=== PATIENT | female | born 1995 | race American Indian/Alaskan Native ===

== ENCOUNTER 2018-12-13 15:35 | Outpatient (CLI) | payer MEDICAID ==
[2018-12-13 16:05] VITALS: BP 111/75
[2018-12-13] MEDS ORDERED: LACTATED RINGERS 1,000 ML ONE (17:03)
[2018-12-13] MEDS ORDERED: VISTARIL PO ONE (17:20)
== END 2018-12-13 18:15 | disposition home or self-care (01) ==
LOC: TRG 15:35
PROVIDERS: ATTEND Obstetrics & Gynecology
DX: O47.1 False labor at or after 37 completed weeks of gestation (principal); Z3A.38 38 weeks gestation of pregnancy
CPT/HCPCS: 59025; 96360; J7120; Q0177

== ENCOUNTER 2018-12-14 06:06 | Inpatient (IN) | payer MEDICAID ==
[2018-12-14] MEDS ORDERED: BRETHINE SUB-Q PRN (06:43)
[2018-12-14] MEDS ORDERED: BRETHINE IVP PRN (06:43)
[2018-12-14] MEDS ORDERED: SUBLIMAZE IV PRN (06:43)
[2018-12-14] MEDS ORDERED: MINERAL OIL PO PRN (06:43)
[2018-12-14] MEDS ORDERED: XYLOCAINE 2% INFILTRATI ONE (06:43)
[2018-12-14] MEDS ORDERED: AMPICILLIN/NS 2 GM/100 ML 2 GM/100 ML BAG IV ONE (06:43)
[2018-12-14] MEDS ORDERED: PITOCin/NS 20 UNIT/1000ML DRIP 20 UNITS/1,000 ML BAG IV SCH (07:00)
[2018-12-14 07:28] LABS: Hematocrit 29.9 % (30.3-42.9); Hemoglobin 9.3 gm/dl (10.1-14.3); Mean Corpuscular HGB Conc 31 % (30-34); Mean Corpuscular Volume 76 fl (79-97); Platelet Count 291 K/mm3 (140-440); Red Blood Count 3.95 M/mm3 (3.65-5.03); Red Cell Distribution Width 18.1 % (13.2-15.2)
[2018-12-14] MEDS: LACTATED RINGERS 1,000 ML IV SCH ×3 (07:54→15:19)
[2018-12-14] MEDS: STADOL IV PRN ×4 (08:01→14:56)
--- NOTE | 2018-12-14 11:51 | History and Physical Report ---
History of Present Illness Date of examination: 12/14/18 (10:40) Date of admission: 12/14/18 07:15 Chief complaint: Intense labor pains History of present illness: 23 yo AA Fe DAE 12/22/2018 ([facility]), 38weeks 6 days, presents in Spontaneous labor.O positive, Rubella Immune, GBS positive. Pt initiated early care with [facility] at 8 weeks. complicated by UTI (GBS; NICA Negative) and several episodes of BV. 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 denies: abnormal PAP smear, gonorrhea, hepatitis B, hepatitis C, herpes, HIV, syphilis, trichomonas Family/Genetic History: diabetes (was given with), heart disease Social history: single, lives with family, full code. denies: smoking, alcohol abuse, prescription drug abuse, IV drug use - Obstetrical History Expected Date of Delivery: 12/22/18 Actual Gestation: 38 Week(s) 6 Day(s) : 1 Para: 0 Hx # Term Pregnancies: 0 Number of Pregnancies: 0 Spontaneous Abortions: 0 Induced : 0 Number of Living Children: 0 Medications and Allergies Allergies Allergy/AdvReac Type Severity Reaction Status Date / Time No Known Allergies Allergy Verified 09/01/15 00:21 Home Medications Medication Instructions Recorded Confirmed Last Taken Type Acetaminophen/Codeine [Tylenol #3] 1 tab PO Q6H PRN #20 tab 09/01/15 12/14/18 Unknown Rx Cyclobenzaprine [Flexeril 10 MG 10 mg PO TID PRN #30 tablet 09/01/15 12/14/18 Unknown Rx TAB] Ibuprofen [Motrin] 600 mg PO Q8H PRN #40 tablet 09/01/15 12/14/18 Unknown Rx Active Meds: Active Medications Butorphanol Tartrate (Stadol) 2 mg IV Q2H PRN PRN Reason: Pain , Severe (7-10) Last Admin: 12/14/18 09:54 Dose: 2 mg Documented by: Ephedrine Sulfate (Ephedrine Sulfate) 10 mg IV Q2M PRN PRN Reason: Hypotension Fentanyl (Sublimaze) 100 mcg IV Q2H PRN PRN Reason: Labor Pain Lactated Ringer's (Lactated Ringers) 1,000 mls @ 125 mls/hr IV DIRECT ANNIE Last Admin: 12/14/18 09:45 Dose: 125 mls/hr Documented by: Oxytocin/Sodium Chloride (Pitocin/Ns 20 Unit/1000ml Drip) 20 units in 1,000 mls @ 125 mls/hr IV DIRECT ANNIE Ampicillin Sodium (Ampicillin/Ns 1 Gm/50 Ml) 1 gm in 50 mls @ 100 mls/hr IV Q4HR ANNIE; Protocol Mineral Oil (Mineral Oil) 30 ml PO QHS PRN PRN Reason: Constipation Terbutaline Sulfate (Brethine) 0.25 mg SUB-Q ONCE PRN PRN Reason: Hyperstimulation/Hypertonicity Terbutaline Sulfate (Brethine) 0.25 mg IVP ONCE PRN PRN Reason: Hyperstimulation/Hypertonicity Review of Systems Cardiovascular: no chest pain, no shortness of breath Respiratory: no shortness of breath Breasts: normal Gastrointestinal: no nausea, no vomiting, no diarrhea, no constipation Genitourinary: normal appearance, contractions, no vaginal bleeding, no leakage of fluid, no dysuria, no pelvic pain, no genital sores Integumentary: no rash, no sores, no lesions - Vital Signs Vital signs: Vital Signs Pulse BP 98 H 109/66 12/14/18 06:16 12/14/18 06:16 Temp Pulse Resp BP Pulse Ox 98.6 F 69 20 132/72 12/14/18 10:35 12/14/18 09:57 12/14/18 10:35 12/14/18 09:57 - Physical Exam Breasts: Positive: normal Cardiovascular: Regular rate, Normal S1, Normal S2, No murmurs Lungs: Positive: Clear to auscultation, Normal air movement Abdomen: Positive: normal appearance, soft, normal bowel sounds. Negative: distention Vulva: both: normal Vagina: Positive: normal moisture Uterus: Positive: enlarged (Gravid) Anus/Rectum: Positive: normal perianal skin Extremities: Positive: normal Deep Tendon Reflex Grade: Normal +2 - Obstetrical FHR: auscultation normal, category 1 Uterine Contraction Monitor Mode: External Cervical Dilatation: 4 (AROM 12/14 @ 10:40, Clear fluid) Cervical Effacement Percentage: 90 station: -2 Uterine Contraction Frequency (min): 2-6min Uterine Contraction Pattern: Regular Uterine Tone Measurement Phase: Resting Uterine Contraction Intensity: Moderate Results Result Diagrams: 12/14/18 07:12 Abnormal lab results 12/14/18 Range/Units 07:12 WBC 11.6 H (4.5-11.0) K/mm3 Hgb 9.3 L (10.1-14.3) gm/dl Hct 29.9 L (30.3-42.9) % MCV 76 L (79-97) fl MCH 24 L (28-32) pg RDW 18.1 H (13.2-15.2) % All other labs normal. Assessment and Plan A: Term IUP at 39w6d Spontaneous labor Category 1 tracing GBS Positive AROM, 12/14@ 10:40, moderate, clear fluid P: Admit to L&D; Routine labor orders GBS prophylaxis May have IV pain med/epidural PRN Anticipate
[2018-12-14] MEDS: AMPICILLIN/NS 1 GM/50 ML 1 GM/50 ML BAG IV SCH ×3 (12:42→20:30)
[2018-12-14] MEDS ORDERED: LACTATED RINGERS 1,000 ML IV SCH (13:00)
[2018-12-14] MEDS ORDERED: NARCAN 2 MG/2 ML IV PRN (15:48)
--- NOTE | 2018-12-14 15:49 | Anesthesia Day of Surgery ---
Anesthesia Day of Surgery - Day of Surgery Patient Examined: Yes Patient H&P Reviewed: Yes Patient is NPO: Yes Beta Blockers: No Cardiac Clearance: No Pulmonary Clearance: No Dustin's Test: N/A
--- NOTE | 2018-12-14 15:50 | Anesthesia Consultation ---
Anesthesia Consult and Med Hx - Airway Anesthetic Teeth Evaluation: Good ROM Head & Neck: Adequate Mental/Hyoid Distance: Adequate Mallampati Class: Class I Intubation Access Assessment: Good - Pulmonary Exam CTA: Yes - Cardiac Exam Cardiac Exam: RRR - Pre-Operative Health Status ASA Pre-Surgery Classification: ASA2 Proposed Anesthetic Plan: Epidural - Pulmonary Hx Asthma: No - Cardiovascular System Hx Hypertension: No - Central Nervous System Hx Seizures: No Hx Psychiatric Problems: No - Endocrine Hx Renal Disease: No Hx Hypothyroidism: No Hx Hyperthyroidism: No - Hematic Hx Anemia: Yes Hx Sickle Cell Disease: No - Other Systems Hx Alcohol Use: No
[2018-12-14] MEDS ORDERED: fentaNYL-BUPIV 2 MCG/ML-0.125% 200 MCG/100 ML BAG EPIDURAL SCH (16:00)
[2018-12-14] MEDS ORDERED: XYLOCAINE 2%/ EPI 1:200,000 INFILTRATI ONE (16:03)
[2018-12-14] MEDS ORDERED: PITOCin/NS 30 UNIT/500ML 30 UNITS/500 ML BAG IV SCH (18:00)
--- NOTE | 2018-12-14 18:02 | Progress Note ---
Assessment and Plan A: Term IUP at 39w6d Active labor Category 1 tracing GBS Positive Comfortable with epidural P: Continue Routine labor orders Continue GBS prophylaxis Anticipate Subjective - Subjective Date of service: 12/14/18 Principal diagnosis: Term IUP, active labor Interval history: 23 yo AA Fe DAE 12/22/2018 ([facility]), 38weeks 6 days, presents in Spontaneous labor.O positive, Rubella Immune, GBS positive. Pt initiated early care with [facility] at 8 weeks. complicated by UTI (GBS; NICA Negative) and several episodes of BV. Patient reports: loss of fluid, vaginal bleeding, movement normal, contractions Objective - Vital Signs Vital Signs: Vital Signs - 12hr 12/14/18 12/14/18 12/14/18 06:16 07:37 09:57 Temperature 99.6 F Pulse Rate 98 H 76 69 Respiratory 20 Rate Blood Pressure 109/66 135/76 132/72 O2 Sat by Pulse Oximetry 12/14/18 12/14/18 12/14/18 10:35 12:30 14:30 Temperature 98.6 F 98.8 F 99.8 F H Pulse Rate Respiratory 20 20 20 Rate Blood Pressure O2 Sat by Pulse Oximetry 12/14/18 12/14/18 12/14/18 15:58 16:00 16:03 Temperature Pulse Rate 98 H 88 88 Respiratory Rate Blood Pressure 120/65 O2 Sat by Pulse 100 100 Oximetry 12/14/18 12/14/18 12/14/18 16:08 16:13 16:15 Temperature Pulse Rate 92 H 87 108 H Respiratory Rate Blood Pressure 117/63 O2 Sat by Pulse 98 99 Oximetry 12/14/18 12/14/18 12/14/18 16:18 16:20 16:22 Temperature Pulse Rate 111 H 105 H 86 Respiratory Rate Blood Pressure 118/69 108/62 123/57 O2 Sat by Pulse 100 Oximetry 12/14/18 12/14/18 12/14/18 16:23 16:25 16:27 Temperature Pulse Rate 82 115 H 78 Respiratory Rate Blood Pressure 123/58 116/65 O2 Sat by Pulse 98 99 Oximetry 12/14/18 12/14/18 12/14/18 16:28 16:29 16:30 Temperature 99.4 F Pulse Rate 80 141 H Respiratory 20 Rate Blood Pressure 110/56 109/56 O2 Sat by Pulse Oximetry 12/14/18 12/14/18 12/14/18 16:31 16:33 16:38 Temperature Pulse Rate 88 101 H 89 Respiratory Rate Blood Pressure 126/65 O2 Sat by Pulse 100 99 Oximetry 12/14/18 12/14/18 12/14/18 16:43 16:47 16:48 Temperature Pulse Rate 115 H 89 85 Respiratory Rate Blood Pressure 117/61 O2 Sat by Pulse 100 100 Oximetry 12/14/18 12/14/18 12/14/18 16:53 16:58 17:01 Temperature Pulse Rate 78 77 78 Respiratory Rate Blood Pressure 118/61 O2 Sat by Pulse 100 100 Oximetry 12/14/18 12/14/18 12/14/18 17:03 17:08 17:13 Temperature Pulse Rate 86 92 H 76 Respiratory Rate Blood Pressure O2 Sat by Pulse 99 100 100 Oximetry 12/14/18 12/14/18 12/14/18 17:17 17:18 17:23 Temperature Pulse Rate 88 96 H 95 H Respiratory Rate Blood Pressure 118/63 O2 Sat by Pulse 100 100 Oximetry 12/14/18 12/14/18 12/14/18 17:28 17:31 17:33 Temperature Pulse Rate 93 H 78 85 Respiratory Rate Blood Pressure 119/62 O2 Sat by Pulse 100 100 Oximetry 12/14/18 12/14/18 12/14/18 17:38 17:43 17:46 Temperature Pulse Rate 78 87 96 H Respiratory Rate Blood Pressure 115/65 O2 Sat by Pulse 100 100 Oximetry 12/14/18 12/14/18 12/14/18 17:48 17:53 17:58 Temperature Pulse Rate 89 82 82 Respiratory Rate Blood Pressure O2 Sat by Pulse 100 100 100 Oximetry - Exam Breasts: normal Cardiovascular: Regular rate, Normal S1, Normal S2, No murmurs Lungs: Clear to auscultation, Normal air movement Abdomen: Present: normal appearance, soft, normal bowel sounds. Absent: distention, tenderness Uterus: Present: other (gravid) FHR: auscultation normal, category 1 Uterine Contraction Monitor Mode: External Cervical Dilatation: 8 (Normal bloody show noted with exam) Cervical Effacement Percentage: 90 station: +1 Uterine Contraction Frequency (min): 2-5 Uterine Contraction Pattern: Regular Uterine Tone Measurement Phase: Resting Uterine Contraction Intensity: Moderate Extremities: normal Deep Tendon Reflex Grade: Normal +2 - Labs Labs: Abnormal Labs 12/14/18 07:12 WBC 11.6 H Hgb 9.3 L Hct 29.9 L MCV 76 L MCH 24 L RDW 18.1 H Laboratory Results - last 24 hr 12/14/18 12/14/18 12/14/18 07:12 07:12 07:12 WBC 11.6 H RBC 3.95 Hgb 9.3 L Hct 29.9 L MCV 76 L MCH 24 L MCHC 31 RDW 18.1 H Plt Count 291 RPR Nonreactive Blood Type O POSITIVE Antibody Screen Negative
[2018-12-14] MEDS ORDERED: PHENERGAN PO PRN (21:19)
[2018-12-14] MEDS ORDERED: ZOFRAN IV PRN (21:19)
[2018-12-14] MEDS ORDERED: LANSINOH TP PRN (21:19)
[2018-12-14] MEDS ORDERED: DULCOLAX PR PRN (21:19)
[2018-12-14] MEDS ORDERED: BENADRYL PO PRN (21:19)
[2018-12-14] MEDS ORDERED: NORCO 5/325 PO PRN (21:19)
[2018-12-14] MEDS ORDERED: MILK OF MAGNESIA PO PRN (21:19)
[2018-12-14] MEDS ORDERED: TYLENOL PO PRN (21:19)
[2018-12-14] MEDS ORDERED: TUCKS PAD TP PRN (21:19)
--- NOTE | 2018-12-14 21:28 | Procedure Note ---
OB Delivery Note - Delivery Date of Delivery: 12/14/18 (21:04) Surgeon: MANDY BUENROSTRO (NICA) Estimated blood loss: 100cc - Vaginal Delivery presentation: vertex, compound (right hand) Delivery position: OA Intrapartum events: none Delivery induction: none Delivery augmentation: rupture of membranes Delivery monitor: external FHT, external uterine Route of delivery: (21:04) Delivery placenta: spontaneous (21:09) Delivery cord: 3 umbilical vessels Episiotomy: none Delivery laceration: none Anesthesia: epidural Delivery comments: viable male, NORMA, compound presentation (right hand) over intact perineum at 21:04. dried, placed [id number] on mothers abdomen. Strong lusty cry. Delayed cord clamping, then cut by FOB with my guidance. Cord blood collected per hospital protocol. Spontaneous robin delivery of intact placenta at 21:09. 3VC. FF@U-2. Bleeding scant. No tears or lacerations. EBL 100cc. Infant and mother left in stable condition in L&D. GBS positive. Treated. Placenta discarded. - Infant A at 1 minute: 8 at 5 minutes: 9 Infant Gender: Male (3159 grams, 6lbs 15oz, 18.5")
[2018-12-14] MEDS ORDERED: SODIUM CHLORIDE FLUSH SYRINGE 10 ML IV NR (22:00)
[2018-12-14] MEDS: IBUPROFEN PO SCH (23:16)
[2018-12-15] MEDS: IBUPROFEN PO SCH ×4 (05:04→23:59)
[2018-12-15] MEDS ORDERED: BOOSTRIX IM ONE (06:00)
[2018-12-15 09:48] LABS: Hematocrit 23.1 % (30.3-42.9); Hemoglobin 7.2 gm/dl (10.1-14.3)
[2018-12-15] MEDS ORDERED: INFED IM ONE (10:18)
--- NOTE | 2018-12-15 10:48 | Progress Note ---
Assessment and Plan A: PP Day #1 Asymptomatic Anemia P: Follow Routine Orders Infed 100mg IM X 1 dose FeSO4 325mg PO TID D/C Home in the AM RTO in 6 Week Subjective - Subjective Date of service: 12/15/18 Principal diagnosis: Term IUP, active labor Patient reports: appetite normal, voiding normally, pain well controlled, flatus, ambulating normally [place]: doing well Objective - Vital Signs Latest vital signs: Vital Signs Temp Pulse Resp BP BP Pulse Ox 12/15/18 09:16 98.0 F 72 16 94/48 100 12/15/18 04:45 98.2 F 68 18 100/59 12/14/18 22:56 98.7 F 77 18 116/62 12/14/18 22:17 81 99 12/14/18 22:12 101 H 100 12/14/18 22:06 84 125/66 100 12/14/18 22:01 106 H 99 12/14/18 21:57 86 99 12/14/18 21:52 78 100 12/14/18 21:51 78 128/72 12/14/18 21:47 91 H 100 12/14/18 21:42 90 99 12/14/18 21:37 78 100 12/14/18 21:36 85 123/65 12/14/18 21:32 98 H 100 12/14/18 21:27 76 100 12/14/18 21:21 76 137/71 12/14/18 21:01 80 129/60 12/14/18 20:53 117 H 99 12/14/18 20:48 108 H 100 12/14/18 20:46 80 138/73 12/14/18 20:43 81 100 12/14/18 20:40 99 H 88 12/14/18 20:38 97 H 100 12/14/18 20:33 104 H 99 12/14/18 20:31 78 124/65 12/14/18 20:28 80 100 12/14/18 20:23 88 100 12/14/18 20:18 90 100 12/14/18 20:16 82 129/72 12/14/18 20:13 92 H 100 12/14/18 20:08 78 100 12/14/18 20:03 82 100 12/14/18 20:01 80 126/66 12/14/18 19:58 86 100 12/14/18 19:53 85 100 12/14/18 19:48 81 100 12/14/18 19:47 76 125/65 12/14/18 19:43 77 100 12/14/18 19:38 98 H 98 12/14/18 19:33 83 100 12/14/18 19:31 134 H 116/55 12/14/18 19:28 97 H 100 12/14/18 19:23 87 100 12/14/18 19:18 119 H 100 12/14/18 19:16 90 113/62 12/14/18 19:14 99.6 F 97 H 16 118/64 100 12/14/18 19:13 123 H 100 12/14/18 19:08 100 H 100 12/14/18 19:03 91 H 100 12/14/18 19:02 86 118/64 12/14/18 18:58 97 H 100 12/14/18 18:55 102 H 87 12/14/18 18:53 85 100 12/14/18 18:48 74 100 12/14/18 18:47 77 119/66 12/14/18 18:43 78 100 12/14/18 18:38 79 99 12/14/18 18:33 77 100 12/14/18 18:31 81 128/71 12/14/18 18:28 81 100 12/14/18 18:23 92 H 100 12/14/18 18:18 83 100 12/14/18 18:16 82 128/74 12/14/18 18:13 78 100 12/14/18 18:08 79 100 12/14/18 18:03 83 100 12/14/18 18:01 75 120/68 12/14/18 17:58 82 100 12/14/18 17:53 82 100 12/14/18 17:48 89 100 12/14/18 17:46 96 H 115/65 12/14/18 17:43 87 100 12/14/18 17:38 78 100 12/14/18 17:33 85 100 12/14/18 17:31 78 119/62 12/14/18 17:28 93 H 100 12/14/18 17:23 95 H 100 12/14/18 17:18 96 H 100 12/14/18 17:17 88 118/63 12/14/18 17:13 76 100 12/14/18 17:08 92 H 100 12/14/18 17:03 86 99 12/14/18 17:01 78 118/61 12/14/18 16:58 77 100 12/14/18 16:53 78 100 12/14/18 16:48 85 100 12/14/18 16:47 89 117/61 12/14/18 16:43 115 H 100 12/14/18 16:38 89 99 12/14/18 16:33 101 H 100 12/14/18 16:31 88 126/65 12/14/18 16:30 99.4 F 20 12/14/18 16:29 141 H 109/56 12/14/18 16:28 80 110/56 12/14/18 16:27 78 99 12/14/18 16:25 115 H 116/65 12/14/18 16:23 82 123/58 98 12/14/18 16:22 86 123/57 12/14/18 16:20 105 H 108/62 12/14/18 16:18 111 H 118/69 100 12/14/18 16:15 108 H 117/63 12/14/18 16:13 87 99 12/14/18 16:08 92 H 98 12/14/18 16:03 88 100 12/14/18 16:00 88 120/65 12/14/18 15:58 98 H 100 12/14/18 14:30 99.8 F H 20 12/14/18 12:30 98.8 F 20 Intake and Output 12/14/18 12/15/18 12/15/18 22:59 06:59 14:59 Intake Total 745.833 480 Output Total 1900 Balance 745.833 -1900 480 Intake: IV 745.833 AMPICILLIN/NS 1 GM/50 ML 50 1 gm In 50 ml @ 100 mls/ hr IV Q4HR ANNIE Rx#: [id number] Lactated Ringers 1,000 ml 695.833 @ 125 mls/hr IV DIRECT ANNIE Rx#:[id number] Oral 120 Intake, Free Water 360 Output: Urine 1900 Void 1900 Other: Total, Intake Amount 120 Total, Output Amount 700 # Voids Void 1 Estimated Blood Loss 100 - Exam Breasts: Present: normal Cardiovascular: Present: Regular rate Lungs: Present: Clear to auscultation, Normal air movement Abdomen: Present: normal appearance, soft, normal bowel sounds Uterus: Present: normal, firm, fundal height below umbilicus - Labs Labs: Abnormal lab results 12/15/18 Range/Units 09:08 Hgb 7.2 L (10.1-14.3) gm/dl Hct 23.1 L D (30.3-42.9) %
--- NOTE | 2018-12-15 10:50 | Discharge Summary ---
Providers - Providers Date of Admission: 12/14/18 07:15 Date of discharge: 12/16/18 Attending physician: GREGORY MARQUEZ MD Primary care physician: GREGORY MARQUEZ MD Hospitalization Reason for admission: active labor Delivery: Episiotomy: none Laceration: none complications: none Discharge diagnosis: IUP at term delivered [place] baby: male Condition at discharge: Good Disposition: DC-01 TO HOME OR SELFCARE Plan - Provider Discharge Summary Activity: routine, no sex for 6 weeks, no heavy lifting 4 weeks, no strenuous exercise Diet: routine Instructions: routine Additional instructions: [] Smoking cessation referral if applicable(refer to patient education folder for contact #) [] Refer to [facility] Booklet Call your doctor immediately for: * Fever > 100.5 * Heavy vaginal bleeding ( >1 pad per hour) * Severe persistent headache * Shortness of breath * Reddened, hot, painful area to leg or breast * Drainage or odor from incision. * Keep incision clean and dry at all times and follow doctor's instructions regarding bathing/showering - Follow up plan Follow up: GREGORY MARQUEZ MD [Primary Care Provider] - 6 Weeks
[2018-12-15] MEDS: FEOSOL PO SCH ×2 (13:41→20:24)
[2018-12-16] MEDS: IBUPROFEN PO SCH (06:50)
[2018-12-16 16:30] VITALS: BP 121/72
== END 2018-12-16 16:30 | disposition home or self-care (01) | DRG 775 ==
LOC: TRG 06:06 → LD 07:15 → OB 22:46
PROVIDERS: ADMIT Obstetrics & Gynecology; ATTEND Obstetrics & Gynecology
PROC: 10E0XZZ Delivery of Products of Conception, External Approach (ICD-10-PCS; principal; 2018-12-14)
PROC: 3E0R3BZ Introduction of Anesthetic Agent into Spinal Canal, Percutaneous Approach (ICD-10-PCS; 2018-12-14)
PROC: 00HU33Z Insertion of Infusion Device into Spinal Canal, Percutaneous Approach (ICD-10-PCS; 2018-12-14)
PROC: 10907ZC Drainage of Amniotic Fluid, Therapeutic from Products of Conception, Via Natural or Artificial Opening (ICD-10-PCS; 2018-12-14)
DX: O99.02 Anemia complicating childbirth (principal); D64.9 Anemia, unspecified; O99.824 Streptococcus B carrier state complicating childbirth; O99.52 Diseases of the respiratory system complicating childbirth; J45.909 Unspecified asthma, uncomplicated; Z37.0 Single live birth; Z83.3 Family history of diabetes mellitus; Z82.49 Family history of ischemic heart disease and other diseases of the circulatory system; Z3A.38 38 weeks gestation of pregnancy; Z79.899 Other long term (current) drug therapy
CPT/HCPCS: 36415; 59025; 85014; 85018; 85027; 86592; 86850; 86900; 86901; 90471; 90715; 96360; G0378; A6250; J0290; J0595; J1750; J2590; J7120; Q0177

== ENCOUNTER 2020-08-16 14:49 | Outpatient (CLI) | payer MEDICAID ==
--- NOTE | 2020-08-16 17:08 | Ultrasound Report ---
US OB limited, US OB BPP wo non-stress INDICATION / CLINICAL INFORMATION: YOAN - POSTDATES, 1CM DILATED. COMPARISON: None available. FINDINGS: A single live fetus is seen in the uterus in cephalic presentation. YOAN is 10.3 and heart rate is 140. BPP is 8/8 IMPRESSION: Single live fetus in the uterus in cephalic presentation with heart rate of 140. YOAN is 10.3 an d BPP is 8/8 Signer Name: Ryan Diop MD FACR Signed: 08/16/2020 5:04 PM Workstation Name: [id number]
[2020-08-16 17:24] VITALS: BP 110/56
== END 2020-08-16 18:40 | disposition home or self-care (01) ==
LOC: TRG 14:49 → APU 14:52 → TRG 18:40
PROVIDERS: ATTEND Obstetrics & Gynecology
DX: O48.0 Post-term pregnancy (principal); Z3A.40 40 weeks gestation of pregnancy
CPT/HCPCS: 59025; 76815; 76819

== ENCOUNTER 2020-08-20 19:54 | Inpatient (IN) | payer MEDICAID ==
--- NOTE | 2020-08-20 21:28 | History and Physical Report ---
History of Present Illness Date of examination: 08/20/20 Date of admission: 08/20/20 19:54 Chief complaint: Presents for a scheduled postdates induction of labor History of present illness: Late entry to care, co-managed with [facility]. course complicated by maternal obesity, abnormal TSH, Anemia, Vitamin D Deficiency, and a UTI. 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 Family/Genetic History: diabetes, hypertension, cancer Social history: no significant social history, - Obstetrical History Expected Date of Delivery: 08/13/20 Actual Gestation: 41 Week(s) 0 Day(s) : 2 Para: 1 Hx # Term Pregnancies: 1 Number of Living Children: 1 #1 Gender: Male year: Birthweight: 3.147 kg Method of Delivery: Vaginal Gestational age at delivery: 38 Complications: none Medications and Allergies Allergies Allergy/AdvReac Type Severity Reaction Status Date / Time No Known Allergies Allergy Verified 09/01/15 00:21 Home Medications Medication Instructions Recorded Confirmed Last Taken Type Acetaminophen/Codeine [Tylenol #3] 1 tab PO Q6H PRN #20 tab 09/01/15 08/20/20 Unknown Rx Cyclobenzaprine [Flexeril 10 MG 10 mg PO TID PRN #30 tablet 09/01/15 08/20/20 Unknown Rx TAB] Ibuprofen [Motrin] 600 mg PO Q8H PRN #40 tablet 09/01/15 08/20/20 Unknown Rx Review of Systems All systems: negative - Vital Signs Vital signs: Vital Signs Pulse BP 118 H 107/58 08/20/20 20:38 08/20/20 20:38 Temp Pulse Resp BP Pulse Ox 118 H 107/58 08/20/20 20:38 08/20/20 20:38 - Physical Exam Breasts: Positive: normal Cardiovascular: Regular rate Lungs: Positive: Clear to auscultation, Normal air movement Abdomen: Positive: normal appearance, soft, normal bowel sounds Genitourinary (Female): Positive: normal external genitalia, normal perenium Vagina: Positive: normal moisture Uterus: Positive: enlarged Anus/Rectum: Positive: normal perianal skin Extremities: Positive: normal - Obstetrical FHR: category 1 Uterine Contraction Monitor Mode: External Cervical Dilatation: 1 (Vtx; Intact) Cervical Effacement Percentage: 60 station: -3 Uterine Contraction Pattern: Irregular Uterine Tone Measurement Phase: Resting Uterine Contraction Intensity: Mild Results All other labs normal. Assessment and Plan A: IUP @ 41 Weeks Category I Tracing GBS Positive P: Admit to L&DmPer Routine Orders GBS Prophylaxis Cervidil Induction
[2020-08-20] MEDS ORDERED: LIDOCAINE (2%) 20 MG/1 ML VIAL 20 ML MDV INFILTRATI ONE (21:32)
[2020-08-20] MEDS ORDERED: TERBUTALINE 1 MG/1 ML INJ SUB-Q PRN (21:32)
[2020-08-20] MEDS ORDERED: AMPICILLIN/NS 2 GM/100 ML 2 GM/100 ML BAG IV ONE (21:32)
[2020-08-20] MEDS ORDERED: MINERAL OIL 30 ML ORAL LIQD PO PRN (21:32)
[2020-08-20] MEDS ORDERED: NALOXONE 0.4 MG/1 ML INJ IV PRN (21:32)
[2020-08-20] MEDS ORDERED: ePHEDrine SULFATE 50 MG/1 ML INJ IV PRN (21:32)
[2020-08-20] MEDS ORDERED: ACETAMINOPHEN 325 MG TAB PO PRN (21:32)
[2020-08-20] MEDS ORDERED: DINOPROSTONE 10 MG VAG SUPP VG ONE (21:32)
[2020-08-20] MEDS ORDERED: BUTORPHANOL 2 MG/1 ML INJ IV PRN (21:32)
[2020-08-20] MEDS ORDERED: OXYTOCIN 20 UNIT/1000ML DRIP 20 UNITS/1,000 ML BAG IV SCH (22:00)
[2020-08-20 22:28] LABS: Hematocrit 24.5 % (30.3-42.9); Hemoglobin 7.3 gm/dl (10.1-14.3); Mean Corpuscular HGB Conc 30 % (30-34); Red Blood Count 3.63 M/mm3 (3.65-5.03)
[2020-08-20 22:34] LABS: Mean Corpuscular Volume 67 fl (79-97); Platelet Count 228 K/mm3 (140-440); Red Cell Distribution Width 21.3 % (13.2-15.2)
[2020-08-20] MEDS: LACTATED RINGERS 1,000 ML IV SCH (23:18)
[2020-08-21] MEDS ORDERED: AMPICILLIN/NS 1 GM/50 ML 1 GM/50 ML BAG IV SCH (01:34)
[2020-08-21] MEDS: fentaNYL 100 MCG/2 ML INJ IV PRN ×2 (03:15→14:38)
[2020-08-21] MEDS: LACTATED RINGERS 1,000 ML IV SCH ×4 (07:01→18:43)
--- NOTE | 2020-08-21 11:43 | Progress Note ---
Assessment and Plan - Patient Problems (1) Encounter for induction of labor Current Visit: Yes Status: Acute Plan to address problem: Cervidil removed Initiate cyctotec 50mg po q 4hrs x 4 doses as tolerated Pain meds as ordered if desired Anticipate (2) Anemia Current Visit: Yes Status: Acute Qualifiers: Anemia type: iron deficiency Plan to address problem: Asymptomatic Resume po iron supplementation PP Subjective - Subjective Date of service: 08/21/20 Principal diagnosis: IOL;Post-date gestation Interval history: See admission H & P Patient reports: movement normal, contractions (mild, irregular), no new complaints, no loss of fluid, no vaginal bleeding Objective - Vital Signs Vital Signs: Vital Signs - 12hr 08/20/20 08/20/20 08/20/20 23:44 23:49 23:54 Temperature Pulse Rate 84 107 H 75 Blood Pressure O2 Sat by Pulse 100 100 100 Oximetry 08/20/20 08/21/20 08/21/20 23:59 00:04 00:09 Temperature Pulse Rate 99 H 82 73 Blood Pressure O2 Sat by Pulse 100 100 100 Oximetry 08/21/20 08/21/20 08/21/20 00:14 00:19 00:24 Temperature Pulse Rate 100 H 85 71 Blood Pressure O2 Sat by Pulse 79 L 100 99 Oximetry 08/21/20 08/21/20 08/21/20 00:29 00:34 00:39 Temperature Pulse Rate 125 H 94 H 90 Blood Pressure O2 Sat by Pulse 100 99 100 Oximetry 08/21/20 08/21/20 08/21/20 00:44 00:49 00:54 Temperature Pulse Rate 74 89 90 Blood Pressure O2 Sat by Pulse 100 100 100 Oximetry 08/21/20 08/21/20 08/21/20 00:59 01:04 01:09 Temperature Pulse Rate 75 80 79 Blood Pressure O2 Sat by Pulse 89 100 100 Oximetry 08/21/20 08/21/20 08/21/20 01:14 01:19 01:24 Temperature Pulse Rate 85 70 86 Blood Pressure O2 Sat by Pulse 90 100 100 Oximetry 08/21/20 08/21/20 08/21/20 01:29 01:34 01:39 Temperature Pulse Rate 87 76 74 Blood Pressure O2 Sat by Pulse 100 99 99 Oximetry 08/21/20 08/21/20 08/21/20 01:44 01:49 01:54 Temperature Pulse Rate 69 68 74 Blood Pressure O2 Sat by Pulse 100 100 100 Oximetry 08/21/20 08/21/20 08/21/20 01:56 06:01 07:10 Temperature 97.8 F Pulse Rate 73 65 Blood Pressure 116/66 111/58 O2 Sat by Pulse Oximetry 08/21/20 08/21/20 08/21/20 10:35 10:40 10:45 Temperature Pulse Rate 113 H 101 H 65 Blood Pressure O2 Sat by Pulse 100 100 100 Oximetry 08/21/20 08/21/20 08/21/20 10:50 10:55 11:00 Temperature Pulse Rate 65 61 64 Blood Pressure O2 Sat by Pulse 100 100 100 Oximetry 08/21/20 08/21/20 08/21/20 11:05 11:10 11:15 Temperature Pulse Rate 72 63 63 Blood Pressure O2 Sat by Pulse 100 100 100 Oximetry 08/21/20 08/21/20 08/21/20 11:20 11:25 11:30 Temperature Pulse Rate 75 78 68 Blood Pressure O2 Sat by Pulse 100 100 100 Oximetry 08/21/20 11:35 Temperature Pulse Rate 109 H Blood Pressure O2 Sat by Pulse 88 Oximetry - Exam Breasts: deferred Cardiovascular: Regular rate Lungs: Normal air movement Uterus: Present: other (enlarged, S=D) FHR: category 1 Uterine Contraction Monitor Mode: External Cervical Dilatation: 0 (vertex) Cervical Effacement Percentage: 50 station: -3 Uterine Contraction Frequency (min): 5-7 Uterine Contraction Pattern: Irregular Uterine Tone Measurement Phase: Resting Uterine Contraction Intensity: Mild Extremities: normal Deep Tendon Reflex Grade: Normal +2 - Labs Labs: Abnormal Labs 08/20/20 21:20 WBC 14.0 H RBC 3.63 L Hgb 7.3 L Hct 24.5 L MCV 67 L MCH 20 L RDW 21.3 H Laboratory Results - last 24 hr 08/20/20 08/20/20 21:20 21:20 WBC 14.0 H RBC 3.63 L Hgb 7.3 L Hct 24.5 L MCV 67 L MCH 20 L MCHC 30 RDW 21.3 H Plt Count 228 Blood Type O POSITIVE Antibody Screen Negative
[2020-08-21] MEDS ORDERED: miSOPROStol 25 MCG TAB PO PRN (11:44)
[2020-08-21] MEDS ORDERED: AMPICILLIN/NS 2 GM/100 ML 2 GM/100 ML BAG IV ONE (16:12)
--- NOTE | 2020-08-21 17:10 | Progress Note ---
Assessment and Plan - Patient Problems (1) Encounter for induction of labor Current Visit: Yes Status: Acute Plan to address problem: Discontinue cyctotec Initiate Pitocin @ 2mu/min if ctx pattern spaces out Pain meds as ordered if desired Anticipate (2) Anemia Current Visit: Yes Status: Acute Qualifiers: Anemia type: iron deficiency Plan to address problem: Asymptomatic Resume po iron supplementation PP (3) SROM (spontaneous rupture of membranes) Current Visit: Yes Status: Acute Plan to address problem: SROM @ 1540, clear fluids Temp q hr, notify provider if febrile Subjective - Subjective Date of service: 08/21/20 Principal diagnosis: IOL;Post-date gestation Interval history: See admission H & P Patient reports: loss of fluid (clear), movement normal, contractions ("can feel them more now"), no new complaints, no vaginal bleeding Objective - Vital Signs Vital Signs: Vital Signs - 12hr 08/21/20 08/21/20 08/21/20 06:01 07:10 10:35 Temperature 97.8 F Pulse Rate 65 113 H Blood Pressure 111/58 O2 Sat by Pulse 100 Oximetry 08/21/20 08/21/20 08/21/20 10:40 10:45 10:50 Temperature Pulse Rate 101 H 65 65 Blood Pressure O2 Sat by Pulse 100 100 100 Oximetry 08/21/20 08/21/20 08/21/20 10:55 11:00 11:05 Temperature Pulse Rate 61 64 72 Blood Pressure O2 Sat by Pulse 100 100 100 Oximetry 08/21/20 08/21/20 08/21/20 11:10 11:15 11:20 Temperature Pulse Rate 63 63 75 Blood Pressure O2 Sat by Pulse 100 100 100 Oximetry 08/21/20 08/21/20 08/21/20 11:25 11:30 11:35 Temperature Pulse Rate 78 68 109 H Blood Pressure O2 Sat by Pulse 100 100 88 Oximetry 08/21/20 08/21/20 08/21/20 11:44 11:45 11:49 Temperature 98.4 F Pulse Rate 117 H 75 84 Blood Pressure 120/74 O2 Sat by Pulse 100 100 Oximetry 08/21/20 08/21/20 08/21/20 11:54 11:59 12:04 Temperature Pulse Rate 94 H 95 H 67 Blood Pressure O2 Sat by Pulse 100 100 100 Oximetry 08/21/20 08/21/20 08/21/20 12:09 12:14 12:19 Temperature Pulse Rate 60 64 69 Blood Pressure O2 Sat by Pulse 100 100 100 Oximetry 08/21/20 08/21/20 08/21/20 12:24 12:29 12:34 Temperature Pulse Rate 66 70 79 Blood Pressure O2 Sat by Pulse 100 100 100 Oximetry 08/21/20 08/21/20 08/21/20 12:39 12:44 12:49 Temperature Pulse Rate 68 76 77 Blood Pressure O2 Sat by Pulse 100 100 100 Oximetry 08/21/20 08/21/20 08/21/20 12:54 12:59 13:04 Temperature Pulse Rate 70 70 69 Blood Pressure O2 Sat by Pulse 100 100 100 Oximetry 08/21/20 08/21/20 08/21/20 13:09 13:14 13:19 Temperature Pulse Rate 68 66 82 Blood Pressure O2 Sat by Pulse 100 100 100 Oximetry 08/21/20 08/21/20 08/21/20 13:24 13:29 13:34 Temperature Pulse Rate 65 73 68 Blood Pressure O2 Sat by Pulse 100 100 100 Oximetry 08/21/20 08/21/20 08/21/20 13:39 13:44 13:49 Temperature Pulse Rate 75 70 69 Blood Pressure O2 Sat by Pulse 100 100 100 Oximetry 08/21/20 08/21/20 08/21/20 13:54 14:06 14:11 Temperature Pulse Rate 69 85 79 Blood Pressure O2 Sat by Pulse 100 100 100 Oximetry 08/21/20 08/21/20 08/21/20 14:16 14:29 14:34 Temperature 98.3 F Pulse Rate 72 74 Blood Pressure 121/75 O2 Sat by Pulse 100 Oximetry - Exam Breasts: deferred Cardiovascular: Regular rate Lungs: Normal air movement FHR: category 1 Uterine Contraction Monitor Mode: External Cervical Dilatation: 3 (per RN) Cervical Effacement Percentage: 90 Uterine Contraction Frequency (min): -3 Uterine Contraction Duration: 2-3 Uterine Contraction Pattern: Regular Uterine Tone Measurement Phase: Resting Uterine Contraction Intensity: Mild - Labs Labs: Abnormal Labs 08/20/20 21:20 WBC 14.0 H RBC 3.63 L Hgb 7.3 L Hct 24.5 L MCV 67 L MCH 20 L RDW 21.3 H Laboratory Results - last 24 hr 08/20/20 08/20/20 08/21/20 21:20 21:20 Unknown WBC 14.0 H RBC 3.63 L Hgb 7.3 L Hct 24.5 L MCV 67 L MCH 20 L MCHC 30 RDW 21.3 H Plt Count 228 Coronavirus (PCR) Negative Blood Type O POSITIVE Antibody Screen Negative
[2020-08-21] MEDS ORDERED: OXYTOCIN DRIP 30 UNITS/500 ML BAG IV SCH (18:00)
[2020-08-21] MEDS ORDERED: DEXMEDETOMIDINE 200 MCG/2 ML VIAL IV ONE (19:27)
[2020-08-21] MEDS ORDERED: NALOXONE 2 MG/2 ML INJ IV PRN (20:02)
[2020-08-21] MEDS ORDERED: ePHEDrine SULFATE 50 MG/1 ML INJ IV PRN (20:02)
--- NOTE | 2020-08-21 20:04 | Anesthesia Consultation ---
Anesthesia Consult and Med Hx Date of service: 08/21/20 - Airway Anesthetic Teeth Evaluation: Good ROM Head & Neck: Adequate Mental/Hyoid Distance: Adequate Mallampati Class: Class II Intubation Access Assessment: Probably Good - Pulmonary Exam CTA: Yes - Cardiac Exam Cardiac Exam: RRR - Pre-Operative Health Status ASA Pre-Surgery Classification: ASA2 Proposed Anesthetic Plan: Epidural - Pulmonary Hx Smoking: No Hx Asthma: No Hx Respiratory Symptoms: No SOB: No COPD: No Home Oxygen Therapy: No Hx Pneumonia: No Hx Sleep Apnea: No - Cardiovascular System Hx Hypertension: No Hx Coronary Artery Disease: No Hx Heart Attack/AMI: No Hx Angina: No Hx Percutaneous Transluminal Coronary Angioplasty (PTCA): No Hx Cardia Arrhythmia: No Hx Pacemaker: No Hx Internal Defibrillator: No Hx Valvular Heart Disease: No Hx Heart Murmur: No Hx Peripheral Vascular Disease: No - Central Nervous System Hx Neuromuscular Disorder: No Hx Seizures: No CVA: No Hx Back Pain: No Hx Psychiatric Problems: No - Gastrointestinal Hx Ulcer: No Hx Gastroesophageal Reflux Disease: Yes - Endocrine Hx Renal Disease: No Hx End Stage Renal Disease: No Hx Cirrhosis: No Hx Liver Disease: No Hx Insulin Dependent Diabetes: No Hx Non-Insulin Dependent Diabetes: No Hx Thyroid Disease: No Hx Hypothyroidism: No Hx Hyperthyroidism: No - Hematic Hx Anemia: Yes Hx Sickle Cell Disease: No - Other Systems Hx Alcohol Use: No Hx Substance Use: No Hx Cancer: No Hx Obesity: Yes
--- NOTE | 2020-08-21 20:07 | Progress Note ---
Labor Epidural - Labor Epidural Start Time: 19:37 Stop Time: 19:39 Performed by:: DARREL ERVIN Procedure: Patient is requesting a laboring epidural for laboring pain. Patient IDed, H&P reviewed, all questions and concerns were answered, and consent was signed. Timeout was performed at bedside. Patient in sitting position. Sterile prep and drape was performed. [3] ml of 1% lidocaine skin wheal at L[3]- L [4]. 18- gauge Touhy epidural needle was advanced to loss of resistance with air technique. Negative CSF negative blood. Epidural catheter advanced to [12] centimeters. [NEGATIVE] Aspiration [NEGATIVE] test dose. Sterile dressing applied. Patient tolerated procedure.
[2020-08-21] MEDS ORDERED: fentaNYL-BUPIV 2 MCG/ML-0.125% 200 MCG/100 ML BAG EPIDURAL SCH (21:00)
[2020-08-21] MEDS ORDERED: LIDOCAINE (2%) 20 MG/1 ML VIAL 20 ML MDV INFILTRATI ONE (22:27)
[2020-08-22] MEDS ORDERED: diphenhydrAMINE 25 MG CAP PO PRN (01:09)
[2020-08-22] MEDS ORDERED: LANOLIN/ZINC/DIMETHICONE (LANSINOH) 7 GM TP PRN (01:09)
[2020-08-22] MEDS ORDERED: PROMETHAZINE 25 MG TAB PO PRN (01:09)
[2020-08-22] MEDS ORDERED: ONDANSETRON 4 MG/2 ML INJ IV PRN (01:09)
[2020-08-22] MEDS ORDERED: WITCH HAZEL/ GLYCERIN PAD TP PRN (01:09)
[2020-08-22] MEDS ORDERED: oxyCODONE /ACETAMINOPHEN 5-325MG TAB PO PRN (01:09)
[2020-08-22] MEDS ORDERED: MAGNESIUM HYDROXIDE (MOM) ORAL LIQD UDC PO PRN (01:09)
--- NOTE | 2020-08-22 01:23 | Procedure Note ---
OB Delivery Note - Delivery Date of Delivery: 08/22/20 (0049) Surgeon: VIRGILIO DYER (CNM) Estimated blood loss: 200cc - Vaginal Delivery presentation: vertex, compound (Left hand) Delivery position: OA (NORMA) Intrapartum events: none Delivery induction: oxytocin Delivery augmentation: rupture of membranes (SROM @1540 on 08/21/2020) Delivery monitor: external FHT, external uterine Route of delivery: Delivery placenta: spontaneous (0055, sharda, disposed per hospital policy) Delivery cord: 3 umbilical vessels Episiotomy: none Delivery laceration: none Anesthesia: epidural Delivery comments: of viable, crying male infant placed directly on maternal abdomen. Cord double clamped, cut by FOB after cessation of pulsation. Placenta spontaneously delivered. Uterus firm @ U-2, hemostasis maintained. Perineum intact. Mother and baby safe, stable and left in care of RN. - Infant A at 1 minute: 8 at 5 minutes: 9 Gender: Male (Weight: 3257 gms (7lbs 3ozs) 19 inches)
[2020-08-22] MEDS: IBUPROFEN 600 MG TAB PO SCH ×5 (04:18→23:09)
[2020-08-22] MEDS ORDERED: DIPHtheria,PERTUSSIS(ACELL),TETANUS VACCINE/PF 0.5 ML VIAL IM ONE (06:00)
--- NOTE | 2020-08-22 09:56 | Post Anesthesia Evaluation ---
- Post Anesthesia Evaluation Patient Participated: Yes Airway Patent: Yes Stable Respiratory Function: Yes Nausea/Vomiting: No Temp > 96.8F: Yes Pain Manageable: Yes Adequeate Hydration: Yes Anesthesia Complications: No Block Receding Appropriately: Yes Patient on Ventilator: No
[2020-08-22 15:19] LABS: Hematocrit 22.5 % (30.3-42.9); Hemoglobin 6.7 gm/dl (10.1-14.3)
[2020-08-22] MEDS: FERROUS SULFATE 325 MG TAB PO SCH (21:57)
[2020-08-23] MEDS: IBUPROFEN 600 MG TAB PO SCH ×3 (05:19→19:59)
[2020-08-23] MEDS: FERROUS SULFATE 325 MG TAB PO SCH ×3 (07:42→19:59)
[2020-08-23 08:45] LABS: Basophils % (Auto) 0.2 % (0.0-1.8); Eosinophils # (Auto) 0.1 K/mm3 (0.0-0.4); Eosinophils % (Auto) 0.4 % (0.0-4.3); Hematocrit 20.2 % (30.3-42.9); Hemoglobin 6.2 gm/dl (10.1-14.3); Lymphocytes # (Auto) 4.2 K/mm3 (1.2-5.4); Lymphocytes % (Auto) 27.4 % (13.4-35.0); Mean Corpuscular HGB Conc 31 % (30-34); Monocytes # (Auto) 0.7 K/mm3 (0.0-0.8); Monocytes % (Auto) 4.8 % (0.0-7.3); Platelet Count 234 K/mm3 (140-440); Red Blood Count 3.04 M/mm3 (3.65-5.03)
[2020-08-23 08:48] LABS: Mean Corpuscular Volume 66 fl (79-97)
--- NOTE | 2020-08-23 10:39 | Progress Note ---
Assessment and Plan PP DAY 1 A: S/P Anemia H&H 6.2/20.2 p:Continue monitoring Continue Fe Repeat cbc in AM D/C home tomm if stable Subjective - Subjective Date of service: 08/23/20 Principal diagnosis: IOL;Post-date gestation Patient reports: appetite normal, voiding normally, pain well controlled, ambulating normally : doing well, nursing well Objective - Vital Signs Latest vital signs: Vital Signs Temp Pulse Resp BP Pulse Ox 08/23/20 07:43 97.9 F 71 16 109/62 99 08/23/20 01:46 98.1 F 71 20 107/64 99 08/22/20 15:55 97.9 F 77 20 109/61 100 08/22/20 11:48 98.0 F 81 20 110/64 100 Intake and Output 08/22/20 08/23/20 08/23/20 22:59 06:59 14:59 Intake Total 480 360 240 Balance 480 360 240 Intake: Oral 480 360 240 Other: Total, Intake Amount 240 120 240 # Voids Void 1 1 1 - Exam Narrative Exam: Pt feeling well and denies complaints. Denies weakness, sob, or dizziness. Breasts: Present: normal Abdomen: Present: normal appearance, soft, normal bowel sounds Vulva: both: normal Uterus: Present: normal, firm, fundal height below umbilicus Extremities: Present: normal - Labs Labs: Abnormal lab results 08/22/20 08/23/20 Range/Units 15:03 08:27 WBC 15.3 H (4.5-11.0) K/mm3 RBC 3.04 L (3.65-5.03) M/mm3 Hgb 6.7 L 6.2 L (10.1-14.3) gm/dl Hct 22.5 L 20.2 L (30.3-42.9) % MCV 66 L (79-97) fl MCH 20 L (28-32) pg RDW 21.0 H (13.2-15.2) % Seg Neutrophils # 10.3 H (1.8-7.7) K/mm3
--- NOTE | 2020-08-24 01:35 | Discharge Summary ---
Providers - Providers Date of Admission: 08/20/20 19:54 Date of discharge: 08/24/20 Attending physician: ELIDIA WINN MD Primary care physician: ELIDIA WINN MD Hospitalization Reason for admission: induction of labor Delivery: Episiotomy: none Laceration: none Other procedures: none complications: none Discharge diagnosis: IUP at term delivered [place] baby: male Hospital course: of viable male with uneventful pp course. See H&P, Delivery summary, and pp notes Condition at discharge: Stable Disposition: DC-01 TO HOME OR SELFCARE Plan - Provider Discharge Summary Additional instructions: [] Smoking cessation referral if applicable(refer to patient education folder for contact #) [] Refer to [facility] Book[facility] Call your doctor immediately for: * Fever > 100.5 * Heavy vaginal bleeding ( >1 pad per hour) * Severe persistent headache * Shortness of breath * Reddened, hot, painful area to leg or breast * Drainage or odor from incision. * Keep incision clean and dry at all times and follow doctor's instructions regarding bathing/showering - Follow up plan Follow up: ELIDIA WINN MD [Primary Care Provider] - 6 Weeks
[2020-08-24] MEDS: IBUPROFEN 600 MG TAB PO SCH (03:42)
[2020-08-24 17:32] VITALS: BP 124/80
== END 2020-08-24 13:40 | disposition home or self-care (01) | DRG 775 ==
LOC: LD 19:54 → OB 08-22 03:51
PROVIDERS: ADMIT Obstetrics & Gynecology; ATTEND Obstetrics & Gynecology
PROC: 3E033VJ Introduction of Other Hormone into Peripheral Vein, Percutaneous Approach (ICD-10-PCS; principal; 2020-08-22)
PROC: 10E0XZZ Delivery of Products of Conception, External Approach (ICD-10-PCS; 2020-08-22)
PROC: 3E0R3BZ Introduction of Anesthetic Agent into Spinal Canal, Percutaneous Approach (ICD-10-PCS; 2020-08-22)
PROC: 00HU33Z Insertion of Infusion Device into Spinal Canal, Percutaneous Approach (ICD-10-PCS; 2020-08-22)
PROC: 3E0234Z Introduction of Serum, Toxoid and Vaccine into Muscle, Percutaneous Approach (ICD-10-PCS; 2020-08-22)
DX: O99.824 Streptococcus B carrier state complicating childbirth (principal); Z3A.41 41 weeks gestation of pregnancy; Z37.0 Single live birth; Z23 Encounter for immunization; O48.0 Post-term pregnancy; O99.214 Obesity complicating childbirth; E66.9 Obesity, unspecified; O99.02 Anemia complicating childbirth; D64.9 Anemia, unspecified; O99.62 Diseases of the digestive system complicating childbirth; K21.9 Gastro-esophageal reflux disease without esophagitis; Z20.828 Contact with and (suspected) exposure to other viral communicable diseases
CPT/HCPCS: 36415; 59200; 85014; 85018; 85025; 85027; 86850; 86900; 86901; 90471; 90715; G0378; J0290; J0595; J2590; J3010; J3490; J7120; U0003-CS